=== PATIENT | female | born 1985 | race Caucasian/White ===

== ENCOUNTER → 2018-12-16 | Outpatient (REF) | payer OTHER ==
[~2018-12-16] MED LIST: COLA100C5 PO; MOM30SS PO; MOTR200T44 PO; QUET20XRTB OR; TYLE325T5 PO
[2018-12-16 20:29] LABS: CHLAMYDIA DNA AMPLIFICATION NEGATIVE (NEGATIVE); GC DNA AMPLIFICATION NEGATIVE (NEGATIVE)
[2018-12-19 16:40] LABS: HPV HYBRID CAPTURE II Positive (Negative)
== END ==
LOC: M SFHCWAGY 14:13
PROVIDERS: ATTEND Nurse Practitioner Women's Health
DX: Z12.4 Encounter for screening for malignant neoplasm of cervix (principal)

== ENCOUNTER → 2019-01-11 | Outpatient (REF) | payer OTHER ==
[~2019-01-11] MED LIST changes: -QUET20XRTB OR; +SERO200T43 OR
== END ==
LOC: M SFHCWAGY 15:10
PROVIDERS: ATTEND Nurse Practitioner Women's Health
DX: R87.613 High grade squamous intraepithelial lesion on cytologic smear of cervix (HGSIL) (principal)

== ENCOUNTER 2019-04-01 10:30 | Day surgery (SDC) | payer OTHER ==
[~2019-04-01] VITALS: Ht 162.6 cm; Wt 44.4 kg
[~2019-04-01 10:30] MED LIST changes: +ADDE1TAB14 PO; +ADDE30CA3 PO; +ATIV1TAB7 PO; +BUPIVACAINE HCL 0.25% 30 ML VIAL As Ordered ONE; +CELE20TA PO; +IODINE STRONG SOLN 15 ML BTL As Ordered ONE; +LATU40TA PO; +LIDOCAINE W/EPINEPHRINE 1% 20ML VIAL As Ordered ONE; +SERO200T PO
[2019-04-01 11:04] LABS: URINE PREG TEST NEGATIVE (NEGATIVE)
[2019-04-01 11:16] LABS: HEMATOCRIT 43.5 % (36.0-47.0); MEAN CORPUSCULAR HEMOGLOBIN 29.8 pg (27.0-33.0); MEAN CORPUSCULAR HGB CONC 32.2 g/dl (32.0-36.5); MEAN CORPUSCULAR VOLUME 92.6 fl (80.0-96.0); PLATELET COUNT, AUTOMATED 224 10^3/uL (150-450); WHITE BLOOD COUNT 3.7 10^3/uL (4.0-10.0)
[2019-04-01] MEDS ORDERED: SCOPOLAMINE 1MG TRANSDERMAL PATCH As Ordered ONE (11:27)
[2019-04-01] MEDS ORDERED: ACETAMINOPHEN 1000MG 100ML IV BTL (OFIRMEV) (J0131 PER 10MG) As Ordered ONE (11:49)
[2019-04-01] MEDS ORDERED: KETOROLAC 60 MG/2 ML VIAL (J1885) As Ordered ONE (11:56)
[2019-04-01] MEDS ORDERED: dexameTHASONE 4 MG/ML 1ML VIAL (J1100) As Ordered ONE (11:56)
[2019-04-01] MEDS ORDERED: ONDANSETRON 4MG/2ML VIAL (J2405) As Ordered ONE (11:56)
[2019-04-01] MEDS ORDERED: MIDAZOLAM INJ 2 MG/2 ML VIAL (J2250) As Ordered ONE (11:56)
[2019-04-01] MEDS ORDERED: ROCURONIUM BROMIDE 50 MG/5 ML VIAL As Ordered ONE (11:56)
[2019-04-01] MEDS ORDERED: PROPOFOL 200 MG/20 ML VIAL As Ordered ONE (11:56)
[2019-04-01] MEDS ORDERED: LIDOCAINE 2% INJ 100 MG/5 ML SDV (FOR ANES.) As Ordered ONE (11:56)
[2019-04-01] MEDS ORDERED: fentaNYL 250 MCG/5 ML INJECTION (J3010) As Ordered ONE (11:56)
[2019-04-01] MEDS ORDERED: LR 1,000 ML IV ONE (12:00)
[2019-04-01] MEDS ORDERED: SCOPOLAMINE 1MG TRANSDERMAL PATCH TOP ONE (12:00)
[2019-04-01] MEDS ORDERED: SUGAMMADEX SODIUM 500 MG/5 ML VIAL (BRIDION) As Ordered ONE (12:13)
[2019-04-01] MEDS ORDERED: LR 1,000 ML IV SCH ×2 (13:15)
[2019-04-01] MEDS ORDERED: fentaNYL 100 MCG/2 ML INJECTION (J3010) IV PRN (13:15)
[2019-04-01] MEDS ORDERED: PERCOCET 5MG/325MG TAB PO PRN (13:30)
[2019-04-01] MEDS: oxyCODONE 5MG TAB PO PRN ×2 (13:48→14:12)
[2019-04-01 14:50] VITALS: BP 121/78
[2019-04-01] MEDS ORDERED: OXYC1TAB23 PO (15:49)
--- NOTE | 2019-04-02 12:48 | RO ---
DATE OF PROCEDURE: 04/01/2019 PREOPERATIVE DIAGNOSIS: Pelvic pain, severe cervical dysplasia. POSTOPERATIVE DIAGNOSIS: Pelvic pain, severe cervical dysplasia. PROCEDURE: Diagnostic laparoscopy, loop electrosurgical excision procedure of the cervix. SURGEON: Meng Vaz MD JUKE BOX SERVICER: Annia Jara MD ANESTHESIA: General endotracheal. ESTIMATED BLOOD LOSS: 10 mL. URINE OUTPUT: 200 mL. FINDINGS: Normal pelvis including uterus, fallopian tubes, and ovaries. No evidence of endometriosis. Normal upper abdomen including appendix, intestines, liver, gallbladder, stomach. OPERATIVE SUMMARY: Patient taken to the operating room where general endotracheal anesthesia was induced. She was prepped and draped in sterile fashion in the dorsal lithotomy position. A Laguna catheter was placed. A Hulka uterine tenaculum was placed to use as the uterus manipulator. A periumbilical incision was made with the scalpel. A Veress needle was placed through this incision while tenting up on the skin of the abdomen. Intraabdominal location of the Veress needle was assessed with the use of a saline filled syringe. Pneumoperitoneum was created. The Veress needle was removed. A 5 mm trocar using AddMyBest was inserted through this incision. A 5 mm suprapubic port was placed under direct visualization without difficulty. A 5 mm scope and camera were used to visualize the abdomen and pelvis with findings noted above. The pelvis was thoroughly evaluated with no evidence of endometriosis. Pneumoperitoneum was released and all instruments were removed. The skin was closed with #4-0 Monocryl subcuticular sutures. Laguna catheter was removed. Hulka tenaculum was removed and speculum was placed. The cervix was injected circumferentially with a dilute solution containing 1% lidocaine and epinephrine. A total of 20 mL was utilized. A 12 x 15 cm loop was used at a power setting of 90 moraes counting mode. A single pass was created at the cervix resulting in a single specimen. The base of the cervix was coagulated with ball electrocoagulation. Monsel solution was applied. Excellent hemostasis was noted. All instruments removed. Sponge, instrument, and needle counts were correct.
== END 2019-04-01 15:00 | disposition home or self-care (01) ==
LOC: M SDC 10:30
PROVIDERS: ATTEND Specialist
DX: N87.9 Dysplasia of cervix uteri, unspecified (principal); R10.2 Pelvic and perineal pain; Z72.0 Tobacco use; F41.9 Anxiety disorder, unspecified; F31.9 Bipolar disorder, unspecified; T88.59XD Other complications of anesthesia, subsequent encounter; D64.9 Anemia, unspecified; E03.9 Hypothyroidism, unspecified; F32.9 Major depressive disorder, single episode, unspecified; F43.10 Post-traumatic stress disorder, unspecified; R76.11 Nonspecific reaction to tuberculin skin test without active tuberculosis; Z88.5 Allergy status to narcotic agent; Z91.048 Other nonmedicinal substance allergy status; Z79.899 Other long term (current) drug therapy
CPT/HCPCS: 36415; 49320; 57461; 84703; 85027; 88307; J0131; J1100; J1885; J2250; J2405; J3010